=== PATIENT | female | born 1945 | race Caucasian/White ===

== ENCOUNTER 2018-04-06 12:58 | Emergency (ER) | payer OTHER ==
[~2018-04-06] VITALS: Ht 157.5 cm; Wt 95.2 kg
[~2018-04-06 12:58] MED LIST: CITRACEL; ESTR1 PO; FISH1000 PO; HYDACE10B PO; LISINOPRIL PO; LOVA40 PO; LYSINE; MEDR2.5 PO; METF850 PO; MULVITA PO; OMEP20ER PO; PARO30 PO; STOMUL PO; UBID100 PO; ZOLP10 PO
[2018-04-06] MEDS ORDERED: TOLT2 PO (14:12)
[2018-04-06] MEDS ORDERED: FURO40 PO (14:13)
[2018-04-06] MEDS ORDERED: CARV3.125 PO (14:13)
[2018-04-06] MEDS ORDERED: POTCHL10ER PO (14:14)
[2018-04-06] MEDS ORDERED: LIRA0.6P (14:15)
[2018-04-06] MEDS ORDERED: Novolog100 UNIT/1 (14:16)
[2018-04-06] MEDS ORDERED: TOUJEO SOL300 UNIT/1 (14:16)
[2018-04-06] MEDS ORDERED: Oxycodone HCl20 M1 PO (14:17)
[2018-04-06] MEDS ORDERED: METHI10 PO (14:17)
[2018-04-06] MEDS ORDERED: TRAZ50 PO (14:18)
[2018-04-06] MEDS ORDERED: Catapres-Tts 21 EACH TOP (14:39)
[2018-04-06] MEDS ORDERED: PROC5 PO (14:39)
== END 2018-04-06 14:56 | disposition home or self-care (01) ==
LOC: ER 12:58
DX: F11.23 Opioid dependence with withdrawal (principal); G89.29 Other chronic pain; J45.909 Unspecified asthma, uncomplicated; Z88.2 Allergy status to sulfonamides; Z88.1 Allergy status to other antibiotic agents; Z88.8 Allergy status to other drugs, medicaments and biological substances; Z79.899 Other long term (current) drug therapy; Z79.84 Long term (current) use of oral hypoglycemic drugs
CPT/HCPCS: 99283

== ENCOUNTER → 2018-05-02 | Outpatient (CLI) | payer OTHER ==
[~2018-05-02] MED LIST changes: +CARV3.125 PO; +Catapres-Tts 21 EACH TOP; +FURO40 PO; +LIRA0.6P; +METHI10 PO; +Novolog100 UNIT/1; +Oxycodone HCl20 M1 PO; +POTCHL10ER PO; +PROC5 PO; +TOLT2 PO; +TOUJEO SOL300 UNIT/1; +TRAZ50 PO
== END | disposition home or self-care (01) ==
LOC: LAB EV 18:06 → LAB SHORT 18:06
DX: E11.65 Type 2 diabetes mellitus with hyperglycemia (principal)
CPT/HCPCS: 82043

== ENCOUNTER → 2019-08-18 | Outpatient (CLI) | payer OTHER ==
[2019-08-18 12:33] LABS: Source, Urine Clean Catch
[2019-08-18 12:42] LABS: Bacteria Few /hpf; Red Blood Cells, Urine 0-2 /hpf (0-2)
== END | disposition home or self-care (01) ==
LOC: LAB SHORT 12:28 → LAB EV 12:28
PROVIDERS: Physician Assistant
DX: R32 Unspecified urinary incontinence (principal)
CPT/HCPCS: 81015; 87086

== ENCOUNTER → 2020-03-30 | Outpatient (CLI) | payer OTHER | END | disposition home or self-care (01) | LOC: LAB SHORT 17:24 → LAB 17:24 | DX: N39.0 Urinary tract infection, site not specified (principal) | CPT/HCPCS: 87077; 87086; 87186 ==